=== PATIENT | female | born 1990 | race Caucasian/White ===

== ENCOUNTER 2017-09-11 22:22 | Inpatient (IN) | END 2017-09-14 15:50 | disposition home or self-care (01) | DRG 775 ==

== ENCOUNTER 2018-04-01 12:12 | Inpatient (IN) | END 2018-04-02 14:55 | disposition home or self-care (01) | DRG 781 ==

== ENCOUNTER 2018-10-04 08:59 | Inpatient (IN) | payer OTHER ==
[~2018-10-04] VITALS: Ht 162.6 cm; Wt 80.0 kg
[~2018-10-04 08:59] MED LIST: FERR27TA PO; PREN1TAB49 PO
--- NOTE | 2018-10-04 09:17 | TRIAGE ---
OB Triage Datetime Report Generated by CPN: 10/04/2018 09:17 Datetime: 10/04/2018 09:17 Assessment Type: Triage Maternal Assessment Level of Consciousness: Fully Conscious DTR's/Clonus: DTRs 2+; No Clonus Headache: Denies Blurred Vision: No Respiratory Effort: Unlabored; Regular Rhythm; Equal Expansion Breath Sounds, Left: Clear and Equal Breath Sounds, Right: Clear and Equal Nausea/Vomiting: Denies RUQ Epigastric Pain: Denies Lower Extremities Edema: None Degree: None Upper Extremities Edema: None Facial Edema: None Fall Risk Assessment History of Falling: (0) No Secondary Diagnosis: (0) No Ambulatory Aid: (0) Bedrest/Nurse Assist IV Therapy: (0) No Gait: (0) Normal/Bedrest/Immobile Mental Status: (0) Oriented to Own Ability Fall Score: 0 Fall Risk Score Definition: No Risk: No action required Datetime: 10/04/2018 09:15 Time of Arrival: 10/04/2018 08:53 EGA: 38.6 Arrived By: Ambulatory Arrived From: Home Chief Complaint: UC'S Movement: Present Contractions: Regular Time Contractions Began: 10/04/2018 07:00 Rupture of Membranes: Unsure Vaginal Bleeding: None Vaginal Discharge: Present Recent Sexual Intercouse: Denies Abdominal Trauma: Not Applicable Patient Complaints: Contractions; Cramping Initial Plan: NST
[2018-10-04 09:21] VITALS: Ht 162.6 cm; Wt 80.0 kg
[2018-10-04 09:22] VITALS: BP 138/80; PULSE 83; RESP 18
[2018-10-04] MEDS ORDERED: IBUPROFEN 600 MG TAB PO PRN (09:30)
[2018-10-04] MEDS ORDERED: LIDOCAINE 1% (MPF) 30 ML INJ INJ PRN (09:30)
[2018-10-04] MEDS ORDERED: BUTORPHANOL 2 MG INJ IV PRN (09:30)
[2018-10-04] MEDS ORDERED: OXYTOCIN 30 UNITS/LR 500 ML IV PRN ×2 (09:30→15:30)
[2018-10-04] MEDS ORDERED: CARBOPROST 250 MCG INJ IM PRN ×2 (09:30→15:30)
[2018-10-04] MEDS ORDERED: MISOPROSTOL 200 MCG TAB PR PRN ×2 (09:30→15:30)
[2018-10-04] MEDS ORDERED: AMPICILLIN 2 GM/NS (PMX) 100 ML IV ONE (09:30)
[2018-10-04] MEDS ORDERED: OXYTOCIN 30 UNITS/LR 500 ML IV SCH ×3 (09:30→15:00)
[2018-10-04] MEDS ORDERED: METHYLERGONOVINE 0.2 MG INJ IM PRN (09:30)
[2018-10-04] MEDS: LACTATED RINGER'S 1,000 ML IV SCH ×3 (09:51→11:16)
[2018-10-04] MEDS ORDERED: FENTAnyl 2MCG/ML-ROPIV 0.2% 100 ML ONE (11:27)
--- NOTE | 2018-10-04 11:35 | PREAC ---
Date/Time of Note Date/Time of Note DATE: 10/04/18 TIME: 11:34 Anesthesia Eval and Record Evaluation Time Pre-Procedure Interview DATE: 10/04/18 TIME: 11:34 Age 28 Sex female NPO: 8 hrs Preoperative diagnosis Labor Pain Planned procedure Labor Epidural Past Medical History Past Medical History: Includes Heme: Anemia : : (3), Para: (2), Gestational age: (40) Surgery & Anesthesia Issues No known issue Meds Anticoagulation: No Beta Burton within 24 hr: No Reason Beta Burton not given: Pt. not on B-Burton Reported Medications Ferrous Sulfate (Iron) 1 Tab Tablet, 1 TAB PO DAILY 10/08/12 Vits W-Ca,Fe,Fa(<1MG) () 1 Tab Tablet, 1 TAB PO DAILY 10/08/12 Current Medications Lactated Ringer's 1,000 ml @ 125 mls/hr Q8H IV Last administered on 10/04/18at 11:16; Admin Dose 125 MLS/HR; Start 10/04/18 at 09:24 Ampicillin 50 ml @ 100 mls/hr Q4H IV ; Start 10/04/18 at 13:30 Butorphanol Tartrate (Stadol) 2 mg Q2H PRN IV .PAIN; Start 10/04/18 at 09:30 Lidocaine (Xylocaine 1% (Mpf)) 30 ml ONCE PRN INJ .EPISIOTOMY; Start 10/04/18 at 09:30 Oxytocin/Lactated Ringer's 500 ml @ 500 mls/hr ONCE POST IV ; Start 10/04/18 at 09:30 Oxytocin/Lactated Ringer's 500 ml @ 125 mls/hr POST IV ; Start 10/04/18 at 09:30 Ibuprofen (Motrin) 600 mg ONCE PRN PO .PAIN 1-5; Start 10/04/18 at 09:30 Oxytocin/Lactated Ringer's 500 ml @ 0 mls/hr ONCE PRN IV .VAGINAL BLEEDING; Start 10/04/18 at 09:30 Methylergonovine Maleate (Methergine) 0.2 mg ONCE PRN IM .VAGINAL BLEEDING; Start 10/04/18 at 09:30 Carboprost Tromethamine (Hemabate) 250 mcg ONCE PRN IM .VAGINAL BLEEDING; Start 10/04/18 at 09:30 Misoprostol (Cytotec) 1,000 mcg ONCE PRN OK .VAGINAL BLEEDING; Start 10/04/18 at 09:30 Meds reviewed: Yes Allergies Coded Allergies: No Known Allergy (Unverified , 04/01/18) Allergies Reviewed: Yes Labs/Studies Labs Reviewed: Reviewed by anesthesiologist Result Diagram: 10/04/18 0930 Laboratory Tests 10/04/18 09:30 Blood Bank Test 10/04/18 09:30 Antibody Screen NEGATIVE Blood Type A POSITIVE Rh Immune Globulin Candidate NO test: Positive Studies: ECG (n/a), CXR (n /a) Pre-procedure Exam Last vitals Vital Signs Date Temp Pulse Resp B/P (MAP) Pulse Ox O2 O2 Flow FiO2 Time Delivery Rate 10/04/18 98.4 83 18 138/80 Room Air 09:22 (99) Airway: Adequate mouth opening, Adequate thyromental dist Mallampati: Mallampati II Teeth: Normal Lung: Normal Heart: Normal ASA Physical Status ASA physical status: 2 Emergency: None Planned Anesthetic Neuraxial: Epidural Planned Pain Management Epidural Pre-operative Attestations Prior to commencing anesthesia and surgery, the patient was re-evaluated, there was verification of: *The patient's identity *The results of appropriate recent lab work and preoperative vital signs *The above evaluation not changing prior to induction *Anesthetic plan, risk benefits, alternative and complications discussed with patient/family; questions answered; patient/family understands, accepts and wishes to proceed. OTILIO HAILE MD Oct 04, 2018 11:35
--- NOTE | 2018-10-04 11:37 | PAC ---
Date/Time of Note Date/Time of Note DATE: 10/04/18 TIME: 11:37 Post-Anesthesia Notes Post-Anesthesia Note Last documented vital signs Vital Signs Date Temp Pulse Resp B/P (MAP) Pulse Ox O2 O2 Flow FiO2 Time Delivery Rate 10/04/18 98.4 83 18 138/80 99 Room Air 11:32 (99) Activity: WNL Respiratory function: WNL Cardiovascular function: WNL Mental status: Baseline Pain reasonably controlled: Yes Hydration appropriate: Yes Nausea/Vomiting absent: Yes OTILIO HAILE MD Oct 04, 2018 11:37
[2018-10-04] MEDS ORDERED: NALOXONE (0.4 MG/ML) INJ IV PRN (12:00)
[2018-10-04] MEDS ORDERED: FENTAnyl 2MCG/ML-ROPIV 0.2% 100 ML BAG EPI SCH (12:00)
[2018-10-04] MEDS ORDERED: MINERAL OIL LIGHT 10 ML VIAL TOP ONE (12:00)
[2018-10-04] MEDS: AMPICILLIN 1 GM/NS (PMX) 50 ML IV SCH ×2 (13:30→17:30)
--- NOTE | 2018-10-04 14:25 | HP ---
Date/Time of Note Date/Time of Note DATE: 10/04/18 TIME: 14:23 OB - History Hx of Present Free Text/Dictation 28 YO with IUP at 38.6 weeks with EDC 10/12/2018 who presented in labor. EFW is 8 Lb. NST is reassuring. she is comfortable with epidural Care: Good Care Ultrasounds: Normal mid trimester US Obstetrical Complications: None Medical Complications: None Past Family/Social History * Past Medical, Surgical, Family and Obstetric Histories reviewed from chart. OB Admission Exam Vital Signs Vital Signs Vital Signs Date Temp Pulse Resp B/P (MAP) Pulse Ox O2 O2 Flow FiO2 Time Delivery Rate 10/04/18 98.4 83 18 138/80 Room Air 09:22 (99) Physical Exam HEENT: WNL Heart: Rhythm Normal Lungs: Clear, Equal Abdomen: WNL Extremities: Normal Reflexes: Normal Cervical Dilatation: 8cm Last 72 hours Lab Results CBC & BMP 10/04/18 09:30 OB Assessment/Plan Reason for admission: active labor Plan: Expectant Management CLAYTON GOODRICH MD Oct 04, 2018 14:25
[2018-10-04] MEDS ORDERED: LACTATED RINGER'S 1,000 ML IV* SCH (15:13)
--- NOTE | 2018-10-04 15:17 | LDN ---
Date/Time of Note Date/Time of Note DATE: 10/04/18 TIME: 15:15 Delivery Summary 28 YO with EDC 10/12/2018 with IUP at 38.6 weeks is s/p of viable male . placenta delivered manually and intact. no lacerations Placenta Delivered: Spontaneously Meconium: none Episiotomy: No Perineal laceration: 0 Anesthesia type: Epidural Sponge & Needle done & correct: Yes All needle counts correct: Yes Any foreign bodies felt in the: No Delivery Information Sex Sex: male Apgars 1 Minute: 9 5 Minute: 9 Suctioning Nose & mouth suctioned at walt: No Delee suction performed: No Umbilical Cord Umbilical cord with: 3 Vessels Cord presentations: no nuchal cord Nuchal cord present X: 0 Cord Blood was obtained: Yes Mother & Baby Disposition Disposition Mom & Baby to Maternity; Good: Yes CLAYTON GOODRICH MD Oct 04, 2018 15:17
[2018-10-04] MEDS ORDERED: ONDANSETRON 4 MG TAB PO PRN (15:30)
[2018-10-04] MEDS ORDERED: SENNA/DOCUSATE NA (8.6MG/50MG) TAB PO PRN (15:30)
[2018-10-04] MEDS ORDERED: ONDANSETRON 4 MG INJ IV PRN (15:30)
[2018-10-04] MEDS ORDERED: LANOLIN HPA 1 PKT TOP PRN (15:30)
[2018-10-04] MEDS ORDERED: HYDROCODONE/APAP (5/325) TAB PO PRN ×2 (15:30)
[2018-10-04] MEDS ORDERED: DIPHENHYDRAMINE 25 MG CAP PO PRN (15:30)
[2018-10-04] MEDS ORDERED: MAGNESIUM HYDROXIDE 30ML CUP PO PRN (15:30)
[2018-10-04] MEDS ORDERED: NA PHOSPHATE/BIPHOS 133 ML ENEMA PR PRN (15:30)
[2018-10-04] MEDS ORDERED: WITCH HAZEL/GLYCERIN PAD PR PRN (15:30)
[2018-10-04] MEDS ORDERED: BENZOCAINE 20% 56 ML SPRAY TOP PRN (15:30)
[2018-10-04] MEDS ORDERED: DIBUCAINE 1% 30 GM OINT TOP PRN (15:30)
[2018-10-04] MEDS ORDERED: DIPHENHYDRAMINE 50 MG INJ IV PRN (15:30)
[2018-10-04] MEDS: IBUPROFEN 600 MG TAB PO SCH ×2 (15:54→23:47)
[2018-10-04 17:00] VITALS: BP 127/69; PULSE 92; RESP 18
[2018-10-04 17:46] VITALS: BP 132/93; PULSE 100; RESP 18
--- NOTE | 2018-10-04 18:46 | NUR ---
EOSS. PT, IS IN STABLE CONDITION . FUNDUS FIRM NORMAL BLEEDING .NO COMPLAINED OF PAIN OR ANY PROBLEM UNDER OBSERVATION .
[2018-10-04 20:30] VITALS: BP 127/73; PULSE 94; RESP 16
[2018-10-04] MEDS: SENNA/DOCUSATE NA (8.6MG/50MG) TAB PO SCH (21:25)
[2018-10-05 04:00] VITALS: BP 115/69; PULSE 86; RESP 16
[2018-10-05] MEDS: IBUPROFEN 600 MG TAB PO SCH ×3 (05:17→17:31)
--- NOTE | 2018-10-05 05:50 | NUR ---
EOSS:VS WNL,VOIDING W/O DIFFICULTIES FUNDUS REMAIN FIRM WITH SMALL LOCHIA NOTED ON THE PAD,PAIN WELL CONTROLLED WITH NORCO AND MOTRIN GOOD BONDING WITH BABY.
[2018-10-05 08:00] VITALS: BP 107/56; PULSE 75; RESP 18
[2018-10-05] MEDS: SENNA/DOCUSATE NA (8.6MG/50MG) TAB PO SCH ×2 (11:31→21:53)
[2018-10-05 12:00] VITALS: BP 115/68; PULSE 78; RESP 19
[2018-10-05 16:00] VITALS: BP 116/67; PULSE 87; RESP 19
[2018-10-05 20:07] VITALS: BP 119/70; PULSE 86; RESP 20
--- NOTE | 2018-10-05 21:08 | DS ---
Date/Time of Note Date/Time of Note DATE: 10/05/18 TIME: 21:07 Obstetrical Discharge Record Final Diagnosis Final Diagnosis: Term delivered Vaginal Delivery Obstetrical Delivery: Spontaneous Complications Augmentation: Yes Condition on Discharge Physical Assessment Voiding: Yes Bowel Movement: Yes Breast: Soft, non-tender, Filling Fundus: Firm Abdomen and Incision: soft, Not tender Calf Tenderness: No Patient Condition: Good CLAYTON GOODRICH MD Oct 05, 2018 21:08
[2018-10-06] MEDS: IBUPROFEN 600 MG TAB PO SCH ×2 (00:01→06:17)
--- NOTE | 2018-10-06 04:30 | NUR ---
PT REFUSED THE NEED FOR TRANSLATION THROUGH IN DEMAND. ISH DAWSON RN REVIEWED TEACHING WITH PT IN MONGOLIAN TO ENSURE UNDERSTANDING, AND PT STATED UNDERSTANDING OF TEACHING IN BOTH DIVEHI AND MONGOLIAN.
[2018-10-06 04:45] VITALS: BP 120/70; PULSE 83; RESP 19
--- NOTE | 2018-10-06 05:59 | NUR ---
EOSS: PT STABLE AT THIS TIME. BONDING WELL WITH BABY. PAIN IS WELL CONTROLLED AND VS STABLE. HOURLY ROUNDING MAINTAINED THROUGHOUT SHIFT.
[2018-10-06 08:39] VITALS: BP 118/58; PULSE 89; RESP 16
[2018-10-06] MEDS ORDERED: DIPHTH/TET/ACEL PERTUSS (ADULT) 0.5 ML VIAL IM* ONE (09:00)
[2018-10-06] MEDS ORDERED: MEASLES,MUMPS,RUBELLA VACCINE INJ SC* ONE (09:00)
[2018-10-06] MEDS ORDERED: VARICELLA VACCINE LIVE/PF 1,350 UNIT/0.5 ML ML SC* ONE (09:00)
[2018-10-06] MEDS: SENNA/DOCUSATE NA (8.6MG/50MG) TAB PO SCH (09:49)
--- NOTE | 2018-10-06 12:10 | NUR ---
PT. DC'D HOME WITH BABY IN ARMS VIA WHEELCHAIR, ACCOMPANIED BY FOB AND VOLUNTEER.
== END 2018-10-06 12:35 | disposition home or self-care (01) | DRG 807 ==
LOC: L-D 08:59 → OBT 08:59 → L-D 09:10 → OBT 09:17 → L-D 12:34 → PP1 16:45
PROVIDERS: ADMIT Specialist; ATTEND Specialist
PROC: 10E0XZZ Delivery of Products of Conception, External Approach (ICD-10-PCS; principal; 2018-10-04)
DX: O80 Encounter for full-term uncomplicated delivery (principal); Z37.0 Single live birth; Z3A.38 38 weeks gestation of pregnancy
CPT/HCPCS: 62319; 85025; 85610; 85730; 86592; 86850; 86900; 86901; 87340; G0463; J0290; J2210; J2405; J3010; J7120